=== PATIENT | female | born 1995 | race Caucasian/White ===

== ENCOUNTER 2020-04-11 11:20 | Emergency (ER) | payer OTHER ==
[2020-04-11 11:28] VITALS: BP 143/92
[2020-04-11] MEDS ORDERED: HYDROCODONE/ACETAMINOPHEN 5-325 MG TABLET PO ONE (12:18)
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
== END 2020-04-11 13:51 | disposition home or self-care (01) ==
LOC: ER 11:20
DX: S16.1XXA Strain of muscle, fascia and tendon at neck level, initial encounter (principal); S29.012A Strain of muscle and tendon of back wall of thorax, initial encounter; M54.2 Cervicalgia; M54.6 Pain in thoracic spine; R51 Headache; V87.7XXA Person injured in collision between other specified motor vehicles (traffic), initial encounter
CPT/HCPCS: 70450; 72070; 72125; 99284